=== PATIENT | female | born 1990 | race Caucasian/White ===

== ENCOUNTER → 2017-11-12 10:21 | Outpatient (CLI) | payer OTHER, SELFPAY | PROVIDERS: PCP Physician Assistant; Visit Provider Physician Assistant | DX: R05 Cough (principal); Z20.828 Contact with and (suspected) exposure to other viral communicable diseases | CPT/HCPCS: 87275; 87276 ==

== ENCOUNTER → 2018-03-05 12:31 | Outpatient (CLI) | payer OTHER, SELFPAY ==
--- NOTE | 2018-03-05 12:40 | US_ITS ---
US transvaginal HISTORY: ITS.REASON: OVARIAN ORDERING PHYSICIAN: Nahomy Lozada PATIENT AGE: 28 years Comparison: 03/03/2018 FINDINGS: The uterus is 8 by 4 x 4 centimeters with a combined endometrial thickness of 3 mm. No uterine mass evident. Nabothian cysts are noted. The left ovary is unremarkable at 2.4 x 1.8 cm. The right ovary is enlarged at 5 x 4 cm containing a 2.9 x 2.8 cm cyst. Blood flow is present. There is a small amount fluid in the cul-de-sac. IMPRESSION: 1. 3 cm right ovarian cyst. 2. Otherwise negative pelvic ultrasound
== END ==
PROVIDERS: Family Provider Physician Assistant; PCP Physician Assistant; Visit Provider Physician Assistant
DX: N83.201 Unspecified ovarian cyst, right side (principal)
CPT/HCPCS: 76830

== ENCOUNTER → 2018-03-12 08:22 | Outpatient (CLI) | payer OTHER, SELFPAY ==
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
== END ==
PROVIDERS: Family Provider Physician Assistant; PCP Physician Assistant; Visit Provider Physician Assistant
DX: R10.9 Unspecified abdominal pain (principal); R12 Heartburn; R93.5 Abnormal findings on diagnostic imaging of other abdominal regions, including retroperitoneum
CPT/HCPCS: 76700

== ENCOUNTER → 2018-10-27 11:48 | Outpatient (CLI) | payer OTHER, SELFPAY ==
[2018-10-27 13:32] LABS: HCG Qualitative, Serum Negative (Negative)
== END ==
PROVIDERS: PCP Physician Assistant; Visit Provider Obstetrics & Gynecology
DX: Z30.9 Encounter for contraceptive management, unspecified (principal)
CPT/HCPCS: 36415; 84703

== ENCOUNTER → 2020-06-01 10:18 | Outpatient (CLI) | payer OTHER, SELFPAY ==
--- NOTE | 2020-06-01 10:24 | XR_ITS ---
PROCEDURE: XR FOOT RT MIN 3V CLINICAL INDICATION: RT FOOT INJURY Lateral foot pain following injury COMPARISON: No exams were available for comparison FINDINGS: No fracture or dislocation. No lytic or blastic change. There is normal mineralization. The joint spaces are well-preserved. No significant degenerative/arthritic changes. No erosive changes evident. Other findings:None. IMPRESSION: No acute findings. Dictated by: Ugo Figueroa MD 06/01/2020 12:28 Ugo Figueroa MD in [place] 06/01/2020 12:28
== END ==
PROVIDERS: PCP Nurse Practitioner Family; Visit Provider Nurse Practitioner Family
DX: S99.921A Unspecified injury of right foot, initial encounter (principal)
CPT/HCPCS: 73630

== ENCOUNTER → 2020-07-20 13:04 | Outpatient (CLI) | payer OTHER, SELFPAY ==
[2020-07-20 15:15] LABS: HCG,Quantitative < 2 mIU/ml (0-5.42)
== END ==
PROVIDERS: Visit Provider Obstetrics & Gynecology
DX: Z32.00 Encounter for pregnancy test, result unknown (principal)
CPT/HCPCS: 36415; 84702

== ENCOUNTER 2020-10-16 09:43 | Emergency (ER) | payer OTHER, SELFPAY ==
[2020-10-16 09:44] VITALS: BP 143/99; PULSE 99; RESP 20; TEMP 36.9; O2SAT 100; BMI 31.6
[2020-10-16 10:24] VITALS: BP 139/90; PULSE 103; O2SAT 100
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
[2020-10-16 10:47] VITALS: BP 127/79; PULSE 98; O2SAT 89
[2020-10-16 11:06] VITALS: BP 134/90; PULSE 100; RESP 16; TEMP 36.6; O2SAT 100
== END 2020-10-16 11:07 | disposition home or self-care (01) ==
PROVIDERS: Emergency Provider Emergency Medicine; PCP Nurse Practitioner Family
DX: T23.211A Burn of second degree of right thumb (nail), initial encounter (principal); X10.1XXA Contact with hot food, initial encounter; Y92.69 Other specified industrial and construction area as the place of occurrence of the external cause; Y99.0 Civilian activity done for income or pay; R03.0 Elevated blood-pressure reading, without diagnosis of hypertension
CPT/HCPCS: 99282

== ENCOUNTER → 2020-10-27 08:24 | Outpatient (CLI) | payer OTHER, SELFPAY ==
--- NOTE | 2020-10-27 08:29 | US_ITS ---
PROCEDURE: US ABDOMEN LIMITED CLINICAL INDICATION: LUQ PAIN,RUQ PAIN COMPARISON: US [facility] US abdomen complete from 03/12/2018 FINDINGS: PANCREAS: Unremarkable. No obvious mass or abnormal fluid collection. No ductal dilatation LIVER: No focal liver lesions demonstrated. Homogeneous echogenicity. No intrahepatic biliary ductal dilatation evident. There is appropriate direction of blood flow within a non dilated portal vein RIGHT KIDNEY: Unremarkable. Normal size and echogenicity. No hydronephrosis GALLBLADDER: There are gallstones present. No gallbladder wall thickening, pericholecystic fluid, or biliary dilatation. Common bile duct is normal at 4 mm. IMPRESSION: Cholelithiasis otherwise negative limited abdominal ultrasound Dictated by: Ugo Figueroa MD 10/27/2020 14:47 Ugo Figueroa MD in [place] 10/27/2020 14:47
== END ==
PROVIDERS: PCP Nurse Practitioner Family; Visit Provider Nurse Practitioner Family
DX: R10.12 Left upper quadrant pain (principal); R10.11 Right upper quadrant pain
CPT/HCPCS: 76705

== ENCOUNTER → 2020-10-27 09:02 | Outpatient (CLI) | payer OTHER, SELFPAY ==
[2020-10-27 09:37] LABS: Basophils % 0.3 % (0.1-2.0); Eosinophils # 0.2 K/mm3 (0.0-0.4); Eosinophils % 2.1 % (0.1-12.0); Hemoglobin 15.5 g/dL (12.2-16.2); Lymphocytes # 2.5 K/mm3 (0.7-4.5); Lymphocytes % 25.7 % (10-50); Mean Corpuscular HGB Conc 33.6 g/dL (31.8-35.4); Mean Corpuscular Hemoglobin 28.6 pg (27.0-31.2); Monocytes # 0.3 K/mm3 (0.1-1.0); Monocytes % 3.5 % (1.7-9.3); Neutrophils # 6.6 K/mm3 (1.8-7.8); Neutrophils % 68.3 % (37.0-80.0); Platelet Count 253 K/mm3 (142-424); Red Blood Count 5.41 M/mm3 (4.20-5.40); Red Cell Distribution Width 13.6 % (11.5-17.5); White Blood Count 9.7 K/mm3 (4.8-10.8)
[2020-10-27 10:06] LABS: Alanine Aminotransferase 21 U/L (12-78); Albumin Level 4.2 g/dl (3.5-5.0); Albumin/Globulin Ratio 1.3 (1.1-1.8); Alkaline Phosphatase 99 U/L (38-126); Anion Gap 11.3 mEq/L (5-15); Aspartate Amino Transferase 27 U/L (14-36); Bilirubin,Total 0.6 mg/dl (0.2-1.3); Blood Urea Nitrogen 9 mg/dl (7-17); Calcium 9.3 mg/dl (8.4-10.2); Carbon Dioxide 27 mmol/L (22.0-30.0); Chloride 103 mmol/L (98-107); Estimated Glomerular Filt Rate 97 ml/min (>60); GFR (African American) 117 ML/MIN (>60); Globulin 3.2 g/dL (1.3-3.2); Glucose 114 mg/dl (74-100); Lipase 131 U/L (23-300); Potassium 4.3 mmoL/L (3.5-5.1); Sodium 137 mmol/L (136-145); Total Protein,Serum 7.4 g/dl (6.3-8.2)
[2020-10-27 10:24] LABS: T4 (Thyroxine) 14.8 ug/dl (5.53-11.0); Triiodothryronine (T3) Uptake 27 % (23.5-40.5)
[2020-10-27 10:38] LABS: Thyroid Stimulating Hormone 0.08 uIU/mL (0.465-4.68)
== END ==
PROVIDERS: Visit Provider Nurse Practitioner Family
DX: R10.12 Left upper quadrant pain (principal); R10.11 Right upper quadrant pain; E03.9 Hypothyroidism, unspecified
CPT/HCPCS: 36415; 80053; 83690; 84436; 84443; 84479; 85025

== ENCOUNTER 2020-11-18 19:09 | Emergency (ER) | payer OTHER, SELFPAY ==
[2020-11-18 19:25] VITALS: BP 157/95; PULSE 106; RESP 20; TEMP 36.5; O2SAT 98; BMI 32.1
--- NOTE | 2020-11-18 19:34 | HMH.EDUTC ---
[facility] [place] Disposition Clinical Impression: Dyspnea Qualifiers: Dyspnea type: shortness of breath Qualified Code(s): R06.02 - Shortness of breath Disposition: Home, Self-Care Condition on Discharge: Good Instructions: Preventing the Spread of Coronavirus Discharge Instructions Additional Instructions: COVID-19 test should be available tomorrow Referrals: Lenka Barnett APRN [Primary Care Provider] - Time of Disposition: 20:15 Medical Decision Making - Royce Inquiry Pt receiving controlled substance: No Vital Signs: 11/18/20 19:25 Temperature 97.7 F Temperature Source Temporal Artery Scan Pulse Rate [Right Brachial] 106 H Respiratory Rate 20 Blood Pressure [Right Arm] 157/95 H Blood Pressure Mean [Right Arm] 115 Blood Pressure Source [Right Arm] Automatic Cuff Blood Pressure Position [Right Arm] Sitting 02 Sat by Pulse Oximetry 98 Oxygen Delivery Method Room Air - Lab Data Lab results reviewed: Yes: I reviewed the patient's lab results. Orders (Tests/Meds): ORDERS Category Date Time Status Covid-19 Nasal PCR ([facility]) Routine Lab 11/18/20 19:20 Received [facility] [place] HPI - General Stated complaint: covid test with symptoms Time Seen by Provider: 11/18/20 19:34 - History of Present Illness Provider Complaint: Patient had 2nd COVID vaccine on 11/15. She woke up the next morning with fever, chills, body aches and cough. [place] a little better / but was sent home from work because was fatigued. Worked today but when she got home she had nausea, no appetite, cough and couldn't catch her breath. She works at a alf. A coworker tested positive for COVID19 recently as well. Onset (ago): day(s) (3) Associated symptoms: cough, fever/chills, malaise, nausea/vomiting Treatments prior to arrival: NSAID - Related Data Home Medications Medication Instructions Recorded Confirmed Buspirone HCl [Buspirone 15 mg 15 mg PO BID 03/03/18 11/08/20 Tablets] Sertraline HCl [Zoloft] 50 mg PO DAILY 03/03/18 11/08/20 Omeprazole [Omeprazole 40mg 40 mg PO DAILY 06/04/19 11/08/20 Capsule] cetirizine 10 mg tablet 10 mg PO DAILY PRN tab 06/22/20 11/08/20 norethindrone-e.estradioL-iron 1 tab PO DAILY 10/16/20 11/08/20 [[id number] 1-0.02(24)-19] levothyroxine 200 mcg tablet 175 mcg PO DAILY tab 11/08/20 11/08/20 Allergies Allergy/AdvReac Type Severity Reaction Status Date / Time No Known Allergies Allergy Verified 11/08/20 13:30 [facility] History - Hepatitis A Screen Attestation statement:: This patient has been screened for Hepatitis A risk factors. I have reviewed the patient's past medical history: Yes Medical History: Denies:: Diabetes Mellitus Type 1, Diabetes Mellitus Type 2, Lung Disease, Seizures Other Medical History: Reports: Thyroid Disease Comment: Depression. Hypothyroidism. Goiter. Gallstones. Ovarian Cysts. Gastroesophageal reflux disease Laterality Cases: Bilateral: Other Other Surgeries: Yes: , EGD, Thyroidectomy Amputation: No Fractures: No Comment: thyroidX (partial)--2005. Right wrist ganglionX--2006. Primary --2011. D&C, [facility] Bx Cx--11/09/2012. Complete thyroid removal--2013 - Social History Smoking Status: Never smoker Tobacco Type: cigarettes Alcohol Intake: never Alcohol Intake Frequency:: other Substance Use Type: denies use Occupational Status: unemployed Family Hx:: No significant family history Comment: 2007, , female, weight 5lb 11oz, bottle, No complications. 2011 , Primary C/S, weight: 8lb 1 oz 21 1/2 inch , Female ROS Obtained: Yes All systems reviewed & no additional complaints - Constitutional Constitutional: Reports body ache, Reports chills, Reports fever(s), Reports headache(s), Reports lethargy, Reports malaise - Respiratory Respiratory: Reports cough - Gastrointestinal Gastrointestingal: Reports: nausea Physical Exam - General General appearance: alert, in no apparent distress - Head
[2020-11-18 20:13] VITALS: BP 157/95; PULSE 106; RESP 20; TEMP 36.5; O2SAT 98
[2020-11-18 20:30] LABS: UTC Strep Screen (Rapid) Negative (Negative)
[2020-11-18 20:31] LABS: UTC Influenza A Antigen Negative (Negative); UTC Influenza B Antigen Negative (Negative)
== END 2020-11-18 20:15 | disposition home or self-care (01) ==
PROVIDERS: Emergency Provider Physician Assistant; PCP Nurse Practitioner Family
DX: Z20.822 Contact with and (suspected) exposure to COVID-19 (principal); R06.02 Shortness of breath; R50.9 Fever, unspecified; E03.9 Hypothyroidism, unspecified
CPT/HCPCS: 87804; 87880; 99202; G0463; U0003

== ENCOUNTER → 2020-12-06 14:06 | Outpatient (CLI) | payer OTHER, SELFPAY ==
[2020-12-06 15:51] LABS: Urine Pregnancy, HCG Qual. Negative (Negative)
[2020-12-06 18:09] LABS: Coronavirus 19 IgG Antibody Positive (Negative); Coronavirus 19 IgM Antibody Negative (Negative)
== END ==
PROVIDERS: Visit Provider Surgery
DX: Z01.818 Encounter for other preprocedural examination (principal); Z20.822 Contact with and (suspected) exposure to COVID-19; Z86.16 Personal history of COVID-19; K80.20 Calculus of gallbladder without cholecystitis without obstruction
CPT/HCPCS: 36415; 81025; 86328

== ENCOUNTER 2020-12-08 06:06 | Day surgery (SDC) | payer OTHER, SELFPAY ==
[2020-12-05 10:33] VITALS: BMI 32.1
[2020-12-08] VITALS (13 sets, daily range): BP systolic 125–153; BP diastolic 72–89; PULSE 80–97; RESP 15–18; TEMP 36.3–43; O2SAT 96–100
[2020-12-08 06:47] LABS: HCG Qualitative, Serum Negative (Negative)
--- NOTE | 2020-12-08 08:06 | HMH.OPNOTE ---
Date of procedure: 12/08/20 Pre-op Diagnosis:: Symptomatic cholelithiasis Post-op Diagnosis:: Chronic calculus cholecystitis Procedure performed:: Laparoscopic cholecystectomy Surgeon:: Collins Chambers MD PLANT TECHNICIAN:: Mariano Hinton Anesthesia: GETA Estimated blood loss (mL): 10 Operative findings:: Significant infundibular thickening Operative note:: After informed consent was obtained, the patient was taken to the operating room and placed in the supine position. General anesthesia was induced and the abdomen was prepped and draped in a sterile fashion. After infiltration with local anesthetic an infraumbilical incision was made. A Veress needle was placed in position. The abdomen was insufflated. A 5 mm optical trocar was placed in position. Under direct visualization, a 12 mm trocar was placed in the subxiphoid position and 2 additional 5 mm trocars were placed in the right upper quadrant. The gallbladder was elevated up and over the liver margin. The tissue around the cystic duct was carefully dissected. 3 clips were placed proximally and the duct was transected with harmonic whitney. Harmonic whitney were then utilized to dissect the gallbladder away from the liver margin with careful attention to the control of the cystic artery. The gallbladder was placed in a retrieval bag and removed through the subxiphoid trocar site. The right upper quadrant was thoroughly irrigated. No active bleeding or bile leak was noted. Fascia at the subxiphoid trocar site was reapproximated utilizing the NeoClose device. The remaining trocars were removed. All wounds were irrigated and skin was closed with 4-0 Monocryl in a subcuticular fashion. Steri-Strips were applied. The patient's anesthetic agents were reversed and extubation was completed prior to transfer to recovery in stable condition. Condition: stable Disposition: PACU Specimens:: Gallbladder and contents Complications:: No immediate
--- NOTE | 2020-12-08 08:18 | P.PN_ITS ---
[facility] Anesthesia Checklist - Patient Identification Patient Identification: Arm Band - Structural Data Admitted From: Home Planned Operative Procedure/s: lap jose luis Consent for Planned Operative Procedure(s) Verified: Yes Verified Documents: Surgical Consent, History and Physical - NPO Status Verified Time NPO: 00:00 - Additional verifications Anesthesia Reactions: No Hx Blood Transfusions: No Blood Transfusion Reaction: No - Airway Assessment C-Spine Mobility Assessed: Yes (mp2) TMJ Mobility Assessed: Yes Dentition: Good Dentition - Neurological Assessment Level of Consciousness: Awake, Alert - Anesthesia Plan Anesthesia Risk discussed: Yes Anesthesia Plan: Verified ASA Class: II Anesthesia Type: General [facility] History I have reviewed the patient's past medical history: Yes Medical History: Reports:: Anxiety, Gastroesophageal Reflux Disease(GERD) Denies:: Cancer, Diabetes Mellitus Type 1, Diabetes Mellitus Type 2, Lung Disease, MRSA, Seizures *Have you ever received a pneumonia vaccine?: No *Have you received a flu vaccine this season?: No Other Medical History: Reports: Thyroid Disease. Denies: Blood Transfusion Reaction Anesthesia experience/problems:: nac Laterality Cases: Bilateral: Other Other Surgeries: Yes: , EGD, Thyroidectomy Amputation: No Fractures: No - *Social History Last grade of school completed: Some college Smoking Status: Never smoker Tobacco Type: cigarettes Alcohol Intake: never Alcohol Intake Frequency:: other Substance Use Type: denies use *Occupational Status:: unemployed *Travel in the last 8 weeks: None Family Hx:: No significant family history
--- NOTE | 2020-12-08 08:19 | HMH.ANESI ---
[facility] Anesthesia Record Part I Intake, IV Amount: 1,000 Estimated blood loss (mL): 10 Urine output (mL): 0 Blood Pressure: 125/76 SaO2: 96 Pulse Rate: 97 Respiratory Rate: 16 Temperature: 98.7 F Patient is:: Drowsy, Stable Stable to PACU at:: 08:15
--- NOTE | 2020-12-08 10:22 | HMH.ANESII ---
[facility] Anesthesia Record Part II Discharge Time: 08:59 Destination: Surgical Day Care (OP Surgery) PACU nurse assessment reviewed?: Yes Patient Condition:: Good Anesthesia Complications:: None Swallowing reflex intact?: Yes Cyanosis?: No Blood Pressure: 131/81 Pulse Rate: 82 Temperature: 97.6 F Mental Status: Alert & Oriented Pain level:: 1 Nausea and/or vomitting:: None Intake, IV Amount: 0
== END 2020-12-08 09:40 | disposition home or self-care (01) ==
PROVIDERS: PCP Nurse Practitioner Family; Visit Provider Surgery
PROC: 0FT44ZZ Resection of Gallbladder, Percutaneous Endoscopic Approach (ICD-10-PCS; CPT 47562; principal; 2020-12-08 07:30)
DX: K80.10 Calculus of gallbladder with chronic cholecystitis without obstruction; F41.9 Anxiety disorder, unspecified; K21.9 Gastro-esophageal reflux disease without esophagitis; E07.9 Disorder of thyroid, unspecified; F32.9 Major depressive disorder, single episode, unspecified; Z79.899 Other long term (current) drug therapy
CPT/HCPCS: 47562; 84703; 96374; J2405; J2710

== ENCOUNTER 2020-12-20 10:08 | Outpatient (CLI) | payer OTHER, SELFPAY ==
--- NOTE | 2020-12-20 10:26 | PC.NURSE ---
1026-phlebotomy here to collect labs
[2020-12-20 10:46] LABS: Basophils % 0.3 % (0.1-2.0); Eosinophils # 0.3 K/mm3 (0.0-0.4); Eosinophils % 2.9 % (0.1-12.0); Hematocrit 42.8 % (37.0-47.0); Hemoglobin 13.5 g/dL (12.2-16.2); Lymphocytes # 3.2 K/mm3 (0.7-4.5); Lymphocytes % 28.4 % (10-50); Mean Corpuscular HGB Conc 31.6 g/dL (31.8-35.4); Mean Corpuscular Hemoglobin 27.9 pg (27.0-31.2); Mean Corpuscular Volume 88.3 fl (81-99); Mean Platelet Volume 7.6 fl (7.4-10.4); Monocytes # 0.4 K/mm3 (0.1-1.0); Monocytes % 3.2 % (1.7-9.3); Neutrophils # 7.3 K/mm3 (1.8-7.8); Neutrophils % 65.2 % (37.0-80.0); Platelet Count 242 K/mm3 (142-424); Red Blood Count 4.85 M/mm3 (4.20-5.40); Red Cell Distribution Width 13.8 % (11.5-17.5); White Blood Count 11.2 K/mm3 (4.8-10.8)
[2020-12-20 10:50] VITALS: BP 148/86; PULSE 87; RESP 18; TEMP 36.4; O2SAT 99
[2020-12-20 10:53] LABS: Alanine Aminotransferase 19 U/L (12-78); Albumin Level 3.9 g/dl (3.5-5.0); Albumin/Globulin Ratio 1.2 (1.1-1.8); Alkaline Phosphatase 96 U/L (38-126); Anion Gap 11.3 mEq/L (5-15); Aspartate Amino Transferase 35 U/L (14-36); Bilirubin,Total 0.2 mg/dl (0.2-1.3); Blood Urea Nitrogen 11 mg/dl (7-17); Calcium 8.9 mg/dl (8.4-10.2); Carbon Dioxide 26 mmol/L (22.0-30.0); Chloride 106 mmol/L (98-107); Estimated Glomerular Filt Rate 97 ml/min (>60); GFR (African American) 117 ML/MIN (>60); Globulin 3.3 g/dL (1.3-3.2); Glucose 114 mg/dl (74-100); Potassium 4.3 mmoL/L (3.5-5.1); Sodium 139 mmol/L (136-145); Total Protein,Serum 7.2 g/dl (6.3-8.2)
== END 2020-12-20 10:50 | disposition home or self-care (01) ==
LOC: INF 10:08
PROVIDERS: PCP Nurse Practitioner Family; Visit Provider Surgery
DX: K80.20 Calculus of gallbladder without cholecystitis without obstruction (principal)
CPT/HCPCS: 80053; 85025; 96372

== ENCOUNTER 2021-02-21 21:46 | Emergency (ER) | payer OTHER, SELFPAY ==
[2021-02-21 21:47] VITALS: BP 131/89; PULSE 94; RESP 18; TEMP 37.3; O2SAT 97; BMI 34.9
--- NOTE | 2021-02-21 22:07 | CT_ITS ---
PROCEDURE INFORMATION: Exam: CT Abdomen And Pelvis Without Contrast Exam date and time: 02/21/2021 10:07 PM Age: 31 years old Clinical indication: Abdominal pain; Left; Prior surgery; Surgery date: 6+ months; Surgery type: Gb and c section; Patient HX: Lt flank pain and difficulty urinating since 2 pm today TECHNIQUE: Imaging protocol: Computed tomography of the abdomen and pelvis without contrast. Radiation optimization: All CT scans at this facility use at least one of these dose optimization techniques: automated exposure control; mA and/or kV adjustment per patient size (includes targeted exams where dose is matched to clinical indication); or iterative reconstruction. COMPARISON: ABDPELW CT abdomen pelvis w con 03/03/2018 1:27 PM FINDINGS: Lungs: The visualized lung bases are clear. Pleural spaces: There are no pleural effusions present. Heart: The visualized portions of the heart are unremarkable. There is no evidence of pericardial fluid collections. Liver: There is mild enlargement of the liver measuring 20.7 cm in CC dimension. Evaluation of the liver is limited without intravenous contrast but the liver is otherwise within normal limits for this noncontrast study. Gallbladder and bile ducts: There has been a cholecystectomy. Pancreas: Noncontrast images of the pancreas are within range of normal. Spleen: The spleen is normal. Adrenal glands: The adrenal glands are normal. Kidneys and ureters: There is a tiny right renal collecting system calcification. No hydronephrosis. The left kidney appears within range of normal. Stomach and bowel: Lack of gastrointestinal contrast limits evaluation of bowel. The colon is normal. Lack of gastrointestinal contrast limits evaluation of bowel. Unopacified loops of small bowel within range of normal.There is a moderate degree of residual ingested material within the stomach. The stomach is otherwise normal. The duodenum appears normal. Appendix: No evidence of appendicitis. Intraperitoneal space: No evidence of intraperitoneal free air. There is no evidence of free intraperitoneal or pelvic fluid. Vasculature: There are numerous benign phleboliths in the pelvis. A few pelvic phleboliths are inseparable from the distal ureters but no secondary changes to favor ureteral stone. Lymph nodes: No enlarged lymph nodes. Urinary bladder: There is a small calcification adjacent to the inferior rightward bladder which either reflects small layering calcification or focus of mural calcification. There is mild bladder wall thickening. The bladder is otherwise normal. Reproductive: The uterus is normal. No adnexal cysts or masses are identified. Bones/joints: The thoracolumbar spine demonstrates mild degenerative changes at multiple levels. There is no evidence of acute fracture. There is no evidence of acute fracture. Soft tissues: There is a tiny fat-containing umbilical hernia. There is a small fat containing midline ventral hernia just superior to the umbilicus with fascial defect measuring approximately 4 mm. The hernia measures approximately 13 mm. There is another small ventral hernia in the upper abdomen seen on series 602, image 54 measuring approximately 6 mm. No soft tissue swelling is identified. Other findings: Evaluation is limited by the lack of intravenous contrast. IMPRESSION: 1. Small calcification adjacent to the inferior rightward bladder which either reflects small layering calcification or focus of mural calcification. 2. Tiny nonobstructing right renal nephrolith. 3. Mild hepatomegaly. 4. Mild bladder wall thickening suggesting incomplete distention, chronic outflow obstructi
--- NOTE | 2021-02-21 22:20 | HMH.EDUROGF ---
ED Disposition Clinical Impression: SIRS (systemic inflammatory response syndrome), Bladder dysfunction Urinary tract infection Qualifiers: Urinary tract infection type: site unspecified Hematuria presence: without hematuria Qualified Code(s): N39.0 - Urinary tract infection, site not specified Disposition: Home, Self-Care Condition on Discharge: Good Instructions: DI for Urinary Tract Infection (UTI) Additional Instructions: use meds and see pcp and urology - call pcp for urine culture results Prescriptions: levoFLOXacin [Levaquin 500mg tab] 500 mg PO DAILY #7 tab Transmission Status: Pending to [facility] Referrals: Lenka Barnett APRN [Primary Care Provider] - Jensen Hoyt MD [Staff Physician] - - Critical Care Critical Care Time: No Attestation: On 02/21/21, the high probability of a clinically significant, sudden or life threatening deterioration of the following system(s) required my full and direct attention, intervention and personal management. The time I documented below is in addition to time spent performing reported procedures but includes the following listed in this critical care notation. Medical Decision Making - Medical Records Medical records reviewed: Yes: I reviewed the patient's medical records. - Royce Inquiry Pt receiving controlled substance: No Vital Signs: 02/21/21 21:47 02/21/21 22:46 02/22/21 00:00 Temperature 99.2 F Temperature Source Oral Pulse Rate 87 Pulse Rate [Right Radial] 94 H Respiratory Rate 18 Blood Pressure 131/86 130/77 Blood Pressure [Right Arm] 131/89 Blood Pressure Mean [Right Arm] 103 Blood Pressure Source Automatic Cuff Automatic Cuff Blood Pressure Source [Right Arm] Automatic Cuff Blood Pressure Position Sitting Supine Blood Pressure Position [Right Arm] Sitting 02 Sat by Pulse Oximetry 97 99 Oxygen Delivery Method Room Air Room Air 02/22/21 00:59 02/22/21 01:00 02/22/21 01:09 Temperature Temperature Source Pulse Rate 85 85 Pulse Rate [Right Radial] Respiratory Rate Blood Pressure 109/64 L 141/79 H Blood Pressure [Right Arm] Blood Pressure Mean [Right Arm] Blood Pressure Source Automatic Cuff Automatic Cuff Blood Pressure Source [Right Arm] Blood Pressure Position Supine Supine Blood Pressure Position [Right Arm] 02 Sat by Pulse Oximetry 99 98 Oxygen Delivery Method Room Air Room Air Room Air - Lab Data Lab results reviewed: Yes: I reviewed the patient's lab results. Lab Results 02/21/21 22:14: WBC 14.0 H, RBC 5.02, Hgb 14.2, Hct 43.4, MCV 86.6, MCH 28.2, MCHC 32.6, RDW 13.9, Plt Count 304, MPV 7.6, Neut % (Auto) 69.3, Lymph % (Auto) 25.0, [place] % (Auto) 4.0, Eos % (Auto) 1.4, Baso % (Auto) 0.3, Neut # (Auto) 9.7 H, Lymph # (Auto) 3.5, [place] # (Auto) 0.6, Eos # (Auto) 0.2, Baso # (Auto) 0.0 02/21/21 22:14: Sodium 138, Potassium 3.9, Chloride 103, Carbon Dioxide 27, Anion Gap 11.9, BUN 9, Creatinine 0.90, Estimated Creat Clear 125, Estimated GFR 72, Est GFR ( Amer) 87, Glucose 108 H, Calcium 9.4, Total Bilirubin 0.3, AST 24, ALT 20, Alkaline Phosphatase 92, C-Reactive Protein 28.3 H, Total Protein 8.0, Albumin 4.7, Globulin 3.3 H, Albumin/Globulin Ratio 1.4 02/21/21 22:14: ESR 2 02/21/21 22:14: Serum HCG, Qual Negative 02/22/21 00:05: Urine Color Vance, Urine Appearance Clear, Urine pH 7.0, Ur Specific [place] 1.025, Urine Protein 3+, Urine Glucose (UA) Trace, Urine Ketones Trace, Urine Blood 1+, Urine Nitrate Positive, Urine Bilirubin Negative, Urine Urobilinogen >=8.0, Ur Leukocyte Esterase Trace, Urine WBC Occasional, Amorphous Sediment Trace, Urine Bacteria Trace Result diagrams: 02/21/21 22:14 02/21/21 22:14 Orders (Tests/Meds): ED MEDICATIONS Generic Name Dose Route Start Last Admin Trade Name Freq PRN Reason Stop Dose Admin Sodium Chloride 1,000 mls @ 999 mls/hr 02/21/21 22:15 02/21/21 22:41 Sod Chlor 0.9% 1000ml Bag IV 02/21/21 23:15 999 mls/
[2021-02-21 22:27] LABS: Basophils % 0.3 % (0.1-2.0); Eosinophils # 0.2 K/mm3 (0.0-0.4); Eosinophils % 1.4 % (0.1-12.0); Hematocrit 43.4 % (37.0-47.0); Hemoglobin 14.2 g/dL (12.2-16.2); Lymphocytes # 3.5 K/mm3 (0.7-4.5); Mean Corpuscular HGB Conc 32.6 g/dL (31.8-35.4); Mean Corpuscular Hemoglobin 28.2 pg (27.0-31.2); Mean Corpuscular Volume 86.6 fl (81-99); Mean Platelet Volume 7.6 fl (7.4-10.4); Monocytes # 0.6 K/mm3 (0.1-1.0); Neutrophils # 9.7 K/mm3 (1.8-7.8); Neutrophils % 69.3 % (37.0-80.0); Platelet Count 304 K/mm3 (142-424); Red Blood Count 5.02 M/mm3 (4.20-5.40); Red Cell Distribution Width 13.9 % (11.5-17.5)
[2021-02-21 22:32] LABS: Chloride 103 mmol/L (98-107)
[2021-02-21 22:33] LABS: Potassium 3.9 mmoL/L (3.5-5.1); Sodium 138 mmol/L (136-145)
[2021-02-21 22:35] LABS: Alanine Aminotransferase 20 U/L (12-78); Alkaline Phosphatase 92 U/L (38-126); Aspartate Amino Transferase 24 U/L (14-36); Bilirubin,Total 0.3 mg/dl (0.2-1.3); Blood Urea Nitrogen 9 mg/dl (7-17); Creatinine Clearance Estimated 125 mL/min (50-200); Estimated Glomerular Filt Rate 72 ml/min (>60); GFR (African American) 87 ML/MIN (>60)
[2021-02-21 22:36] LABS: Albumin Level 4.7 g/dl (3.5-5.0); Albumin/Globulin Ratio 1.4 (1.1-1.8); Anion Gap 11.9 mEq/L (5-15); Calcium 9.4 mg/dl (8.4-10.2); Carbon Dioxide 27 mmol/L (22.0-30.0); Globulin 3.3 g/dL (1.3-3.2); Glucose 108 mg/dl (74-100)
[2021-02-21 22:39] LABS: HCG Qualitative, Serum Negative (Negative)
[2021-02-21 22:41] LABS: C-Reactive Protein 28.3 mg/L (0-4)
[2021-02-21 22:46] VITALS: BP 131/86
[2021-02-21 22:52] LABS: Erythrocyte Sedimentation Rate 2 mm/hr (0-20)
[2021-02-22] VITALS: BP 130/77; PULSE 87; O2SAT 99
[2021-02-22 00:15] LABS: Microscopic, Urine URINE MICROSCOPIC (MICROSCOPIC)
[2021-02-22 00:42] LABS: Appearance,Urine CLEAR (Clear); Bilirubin,Urine Negative (Negative); Blood, Urine 1+ (Negative); Color,Urine ORANGE (Yellow); Glucose,Urine (UA) TRACE (Negative); Ketones,Urine TRACE (Negative); Leukocyte Esterase,Urine TRACE (Negative); Nitrate,Urine POSITIVE (Negative); Protein,Urine 3+ (Negative); Specific Gravity, Urine 1.025 (1.005-1.030); Urobilinogen,Urine >=8.0 EU/dl (0.2)
[2021-02-22 01:00] VITALS: BP 109/64; PULSE 85; O2SAT 99
[2021-02-22 01:03] LABS: WBC,Urine Occasional #/hpf (0-3)
[2021-02-22 01:04] LABS: Amorphous Sediment,Urine Trace /lpf; Bacteria,Urine Trace /lpf
[2021-02-22 01:09] VITALS: BP 141/79; PULSE 85; O2SAT 98
[2021-02-22 01:30] VITALS: BP 115/83; PULSE 84; RESP 16; TEMP 37.2; O2SAT 97
== END 2021-02-22 01:37 | disposition home or self-care (01) ==
PROVIDERS: Emergency Provider Emergency Medicine; PCP Nurse Practitioner Family
DX: N30.01 Acute cystitis with hematuria (principal); R65.10 Systemic inflammatory response syndrome (SIRS) of non-infectious origin without acute organ dysfunction; K21.9 Gastro-esophageal reflux disease without esophagitis; E03.9 Hypothyroidism, unspecified; Z79.899 Other long term (current) drug therapy
CPT/HCPCS: 74176; 80053; 81001; 84703; 85025; 85651; 86140; 87086; 87088; 87186; 96365; 96367; 96375; 99283

== ENCOUNTER → 2021-06-07 18:03 | Outpatient (CLI) | payer OTHER, SELFPAY | PROVIDERS: Visit Provider Urology | DX: N39.0 Urinary tract infection, site not specified (principal) | CPT/HCPCS: 87086; 87088; 87186 ==

== ENCOUNTER → 2021-11-21 08:00 | Outpatient (CLI) | payer OTHER, SELFPAY ==
[2021-11-21 08:30] LABS: Hematocrit 43.7 % (37.0-47.0); Hemoglobin 14.4 g/dL (12.2-16.2); Mean Corpuscular Hemoglobin 29.9 pg (27.0-31.2); Mean Corpuscular Volume 90.4 fl (81-99); Platelet Count 311 K/mm3 (142-424); Red Blood Count 4.84 M/mm3 (4.20-5.40); White Blood Count 10.1 K/mm3 (4.8-10.8)
[2021-11-21 10:02] LABS: Chloride 101 mmol/L (98-107)
[2021-11-21 10:03] LABS: Potassium 4.1 mmoL/L (3.5-5.1); Sodium 136 mmol/L (136-145)
[2021-11-21 10:05] LABS: Alanine Aminotransferase 31 U/L (12-78); Alkaline Phosphatase 75 U/L (38-126); Anion Gap 12.1 mEq/L (5-15); Aspartate Amino Transferase 26 U/L (14-36); Bilirubin,Total 0.6 mg/dl (0.2-1.3); Blood Urea Nitrogen 13 mg/dl (7-17); Carbon Dioxide 27 mmol/L (22.0-30.0); Estimated Glomerular Filt Rate 83 ml/min (>60); GFR (African American) 100 ML/MIN (>60)
[2021-11-21 10:06] LABS: Albumin Level 4.2 g/dl (3.5-5.0); Albumin/Globulin Ratio 1.4 (1.1-1.8); Calcium 9.1 mg/dl (8.4-10.2); Globulin 2.9 g/dL (1.3-3.2); Glucose 102 mg/dl (74-100); Lipase 101 U/L (23-300); Total Protein,Serum 7.1 g/dl (6.3-8.2)
== END ==
PROVIDERS: PCP Nurse Practitioner Family
DX: K44.9 Diaphragmatic hernia without obstruction or gangrene (principal)
CPT/HCPCS: 36415; 80053; 83690; 85014; 85018; 85048; 85049

== ENCOUNTER → 2022-01-18 11:53 | Outpatient (CLI) | payer OTHER, SELFPAY ==
--- NOTE | 2022-01-18 12:03 | XR_ITS ---
FINAL REPORT CLINICAL HISTORY: PAIN IN LFT THIGHPAIN IN LAFT THIGH, no injury, intermittent pain x 1 year FINDINGS: LEFT FEMUR 2 views were obtained. The proximal aspect of the femur is not within the field of view. There is no acute fracture or dislocation. The knee joint spaces are intact. There is no soft tissue abnormality. IMPRESSION: No acute bony abnormality in the visualized portion of the femur. Reviewed, Interpreted and Dictated by Med Bhakta III, MD Transcribed by Shannan Montemayor Authenticated by Med Bhakta III, MD on 01/18/2022 12:49:32 PM [facility]
--- NOTE | 2022-01-18 12:04 | XR_ITS ---
FINAL REPORT CLINICAL HISTORY: PAIN IN LAFT THIGH, no injury, intermittent pain x 1 year FINDINGS: LEFT HIP Two views of the left hip including an AP pelvis demonstrate no acute fracture or dislocation. The joint spaces appear normal. The visualized bony structures are well aligned. No soft tissue abnormality is seen. IMPRESSION: No acute bony abnormality. Reviewed, Interpreted and Dictated by Med Bhakta III, MD Transcribed by Shannan Montemayor Authenticated by Med Bhakta III, MD on 01/18/2022 12:46:39 PM [facility]
== END ==
PROVIDERS: PCP Nurse Practitioner Family; Visit Provider Internal Medicine Gastroenterology
DX: Z01.812 Encounter for preprocedural laboratory examination (principal); Z11.52 Encounter for screening for COVID-19
CPT/HCPCS: 73502; 73552; C9803; U0003; U0005

== ENCOUNTER 2022-01-20 23:36 | Emergency (ER) | payer OTHER, SELFPAY ==
[2022-01-20 23:53] VITALS: BP 125/77; PULSE 103; RESP 16; TEMP 36.8; O2SAT 95; BMI 28.5
[2022-01-21 00:47] LABS: Basophils # 0.1 K/mm3 (0-0.2); Basophils % 1.1 % (0.1-2.0); Eosinophils # 0.1 K/mm3 (0.0-0.4); Eosinophils % 0.4 % (0.1-12.0); Hemoglobin 14.7 g/dL (12.2-16.2); Lymphocytes # 2.2 K/mm3 (0.7-4.5); Lymphocytes % 18.4 % (10-50); Mean Corpuscular HGB Conc 32.6 g/dL (31.8-35.4); Mean Corpuscular Hemoglobin 29.2 pg (27.0-31.2); Mean Corpuscular Volume 89.7 fl (81-99); Mean Platelet Volume 8.1 fl (7.4-10.4); Monocytes # 0.4 K/mm3 (0.1-1.0); Monocytes % 3.2 % (1.7-9.3); Neutrophils # 9.2 K/mm3 (1.8-7.8); Neutrophils % 76.9 % (37.0-80.0); Platelet Count 282 K/mm3 (142-424); Red Blood Count 5.01 M/mm3 (4.20-5.40); Red Cell Distribution Width 13.5 % (11.5-17.5); White Blood Count 11.9 K/mm3 (4.8-10.8)
[2022-01-21 00:49] LABS: Lipase 78 U/L (23-300)
[2022-01-21 00:50] LABS: Anion Gap 11.9 mEq/L (5-15); Blood Urea Nitrogen 8 mg/dl (7-17); Carbon Dioxide 29 mmol/L (22.0-30.0); Chloride 103 mmol/L (98-107); Creatinine Clearance Estimated 174 mL/min (50-200); Estimated Glomerular Filt Rate 115 ml/min (>60); Potassium 3.9 mmoL/L (3.5-5.1); Sodium 140 mmol/L (136-145)
[2022-01-21 00:51] LABS: Alanine Aminotransferase 26 U/L (12-78); Albumin Level 4.2 g/dl (3.5-5.0); Albumin/Globulin Ratio 1.4 (1.1-1.8); Alkaline Phosphatase 78 U/L (38-126); Aspartate Amino Transferase 32 U/L (14-36); Bilirubin,Total 0.6 mg/dl (0.2-1.3); GFR (African American) 139 ML/MIN (>60); Globulin 3.1 g/dL (1.3-3.2); Glucose 131 mg/dl (74-100); Total Protein,Serum 7.3 g/dl (6.3-8.2)
[2022-01-21 00:53] LABS: Microscopic, Urine URINE MICROSCOPIC (MICROSCOPIC)
[2022-01-21 00:54] LABS: Appearance,Urine CLEAR (Clear); Blood, Urine Negative (Negative); Color,Urine YELLOW (Yellow); Glucose,Urine (UA) Negative (Negative); Ketones,Urine 1+ (Negative); Leukocyte Esterase,Urine Negative (Negative); Nitrate,Urine Negative (Negative); Protein,Urine TRACE (Negative); Urobilinogen,Urine 0.2 EU/dl (0.2)
[2022-01-21 01:00] LABS: Urine Pregnancy, HCG Qual. Negative (Negative)
[2022-01-21 01:01] LABS: Bilirubin,Urine Negative (Negative)
[2022-01-21 01:02] LABS: Amorphous Sediment,Urine 2+ /lpf; Mucus,Urine 1+ /lpf
[2022-01-21 01:03] LABS: Troponin I < 0.01 ng/ml (0.00-0.034)
[2022-01-21 01:16] VITALS: BP 121/80; PULSE 102; RESP 16; TEMP 36.8; O2SAT 98
--- NOTE | 2022-01-21 05:59 | HMH.EDGENADL ---
ED Disposition Clinical Impression: Left against medical advice, Gastritis Disposition: Left Against Medical Advice Condition on Discharge: Fair Instructions: DI for Acute Abdominal Pain Referrals: Lenka Barnett APRN [Primary Care Provider] - - Critical Care Critical Care Time: No Attestation: On 01/20/22, the high probability of a clinically significant, sudden or life threatening deterioration of the following system(s) required my full and direct attention, intervention and personal management. The time I documented below is in addition to time spent performing reported procedures but includes the following listed in this critical care notation. Medical Decision Making - Royce Inquiry Pt receiving controlled substance: No Vital Signs: 01/20/22 23:53 01/21/22 01:16 Temperature 98.2 F 98.2 F Temperature Source Oral Oral Pulse Rate 102 H Pulse Rate [Right Brachial] 103 H Respiratory Rate 16 16 Blood Pressure 121/80 Blood Pressure [Right Arm] 125/77 Blood Pressure Mean [Right Arm] 93 Blood Pressure Source [Right Arm] Automatic Cuff Blood Pressure Position [Right Arm] Sitting 02 Sat by Pulse Oximetry 95 Oxygen Delivery Method Room Air Room Air - Lab Data Lab Results 01/21/22 00:02: WBC 11.9 H, RBC 5.01, Hgb 14.7, Hct 45.0, MCV 89.7, MCH 29.2, MCHC 32.6, RDW 13.5, Plt Count 282, MPV 8.1, Neut % (Auto) 76.9, Lymph % (Auto) 18.4, [place] % (Auto) 3.2, Eos % (Auto) 0.4, Baso % (Auto) 1.1, Neut # (Auto) 9.2 H, Lymph # (Auto) 2.2, [place] # (Auto) 0.4, Eos # (Auto) 0.1, Baso # (Auto) 0.1 01/21/22 00:02: Sodium 140, Potassium 3.9, Chloride 103, Carbon Dioxide 29, Anion Gap 11.9, BUN 8, Creatinine 0.60, Estimated Creat Clear 174, Estimated GFR 115, Est GFR ( Amer) 139, Glucose 131 H, Calcium 9.0, Total Bilirubin 0.6, AST 32, ALT 26, Alkaline Phosphatase 78, Troponin I < 0.01, Total Protein 7.3, Albumin 4.2, Globulin 3.1, Albumin/Globulin Ratio 1.4 01/21/22 00:02: Lipase 78 01/21/22 00:45: Urine Color Yellow, Urine Appearance Clear, Urine pH 8.0, Ur Specific [place] 1.020, Urine Protein Trace, Urine Glucose (UA) Negative, Urine Ketones 1+, Urine Blood Negative, Urine Nitrate Negative, Urine Bilirubin Negative, Urine Urobilinogen 0.2, Ur Leukocyte Esterase Negative, Urine WBC 5-10, Ur Squamous Epith Cells 5-10, Amorphous Sediment 2+, Urine Mucus 1+ 01/21/22 00:45: Urine HCG, Qual Negative Result diagrams: 01/21/22 00:02 01/21/22 00:02 Orders (Tests/Meds): ED MEDICATIONS Discontinued Medications Generic Name Dose Route Start Last Admin Trade Name Freq PRN Reason Stop Dose Admin Belladonna Alkaloids 60 ml 01/21/22 00:37 01/21/22 00:43 Gi Cocktail 60ml Udc PO 01/21/22 00:38 60 ml ONCE ONE Administration Famotidine 20 mg 01/21/22 00:37 01/21/22 00:43 Famotidine 20mg/2ml Vial IV 01/21/22 00:38 20 mg ONCE ONE Administration Lactated Ringer's 1,000 mls @ 999 mls/hr 01/21/22 00:45 01/21/22 00:44 Lactated Ringer's 1000 Ml Bag IV 01/21/22 01:45 999 mls/hr .Q1H1M MARY Administration Metoclopramide HCl 10 mg 01/21/22 00:37 01/21/22 00:43 Metoclopramide Hcl 10mg/2ml Vial IVP 01/21/22 00:38 10 mg ONCE ONE Administration Sodium Chloride 8 ml 01/21/22 00:37 Sodium Chloride 0.9% 10ml Vial IV 02/20/22 00:36 NEEDED PRN dilute pepcid ORDERS Category Date Time Status EKG Request [ECG Request by /Jimbo] Stat Y 01/21/22 00:39 Ordered Medical Decision Narrative: DDx includes but not limited to gastritis, GERD, pancreatitis, ACS. HDS, NAD, nonperitonitic abd. exam. Mildly tachycardic but not sustained while here in the ED. Labs ordered with IV famotidine, PO gi cocktail, IV reglan ordered. On reassessment, patient states she cannot get comfortable and wants to leave AMA. Pt advised to stay pending workup results and reassessment but she states she wants someone to take my IV out and I want to leave AMA . Pt was advised on risks of aristeo
== END 2022-01-21 01:21 | disposition left against medical advice (07) ==
LOC: ER 23:54
PROVIDERS: Emergency Provider Student in an Organized Health Care Education/Training Program; PCP Nurse Practitioner Family
DX: R07.9 Chest pain, unspecified (principal); N39.0 Urinary tract infection, site not specified; E89.0 Postprocedural hypothyroidism; K21.9 Gastro-esophageal reflux disease without esophagitis; E04.9 Nontoxic goiter, unspecified; K44.9 Diaphragmatic hernia without obstruction or gangrene; K85.10 Biliary acute pancreatitis without necrosis or infection; N83.209 Unspecified ovarian cyst, unspecified side; F41.9 Anxiety disorder, unspecified; Z79.899 Other long term (current) drug therapy; Z82.49 Family history of ischemic heart disease and other diseases of the circulatory system; Z83.3 Family history of diabetes mellitus
CPT/HCPCS: 80053; 81001; 81025; 83690; 84484; 85025; 96361; 96365; 96374; 96375; 99285

== ENCOUNTER 2023-03-24 08:59 | Emergency (ER) | payer BC, OTHER, SELFPAY ==
[2023-03-24 09:00] VITALS: BP 143/97; PULSE 90; RESP 16; TEMP 36.8; O2SAT 98; BMI 31.6
--- NOTE | 2023-03-24 09:16 | EXP.UTC ---
Discharge Plan Disposition Patient Disposition: Home, Self-Care Condition: Good Prescriptions Prescriptions: New amoxicillin 875 mg tablet 875 mg PO BID 10 Days Qty: 20 0RF ofloxacin 0.3 % drops 5 drp otic (ear) BID 7 Days Qty: 10 1RF Rx Instructions: apply to right ear as directed No Action lisinopril 10 mg tablet 10 mg PO Label Comments: TAKE 1 TABLET 1 TIME EACH DAY levothyroxine 175 mcg tablet 175 mcg PO Label Comments: TAKE 1 TABLET ONCE A DAY IN THE MORNING ON AN EMPTY STOMACH. ofloxacin 0.3 % drops 3 drp OTIC BID Qty: 5 1RF cetirizine 10 mg tablet 10 mg PO DAILY PRN (Reason: ALLERGIES) cefdinir 300 mg capsule 300 mg PO BID Qty: 10 0RF norethindrone-e.estradiol-iron 1 mg-20 mcg (21)/75 mg (7) tablet 1 tab PO DAILY Qty: 28 11RF sertraline 50 MG tablet 75 mg PO DAILY buspirone 15 MG tablet 15 mg PO BID omeprazole 40 MG capsule,delayed release(DR/EC) 40 mg PO DAILY Label Comments: TAKE 1 CAPSULE ONCE A DAY levofloxacin 500 MG tablet 500 mg PO DAILY Qty: 7 0RF Referrals Follow up/Referrals: Provider,Referral, MD [Primary Care Provider] - See instructions Activity Restrictions/Add. Instructions Additional Instructions/Restrictions: Usee drops as directed in the right ear Follow up with your Family Doctor if no improvement or any worsening of symptoms Oral antibiotics as prescribed Return if needed Over the counter Motrin and/or Tylneol may help with pain and discomfort Clinical Impressions Clinical Impression: Otitis media Instructions Patient Instructions: Middle Ear Infection, Ear Infections (Alternative Therapy), Ofloxacin Otic Discharge [place] Corinne [place] [facility] [place] General Stated complaint: ear pain Mode of Arrival: Ambulatory Source of Information: Patient Limitations: No Limitations Time Seen by Provider: 03/24/23 09:17 Description of Symptoms (Recalled from Triage Doc. by RN): Patient reports left ear feels full an dhurts and her right ear feels full. States this has been going on for about a month now. HEENT Symptoms (Recalled from RN notes): Yes Resp Symptoms (Recalled from RN notes): No Skin Symptoms (Recalled from RN notes): No MS Symptoms (Recalled from RN notes): No Functional Status (Recalled from RN notes): wnl History of Present Illness Provider Complaint: Patient states that she has been having bilateral ear pain and fullness for about a month on and off States that it is worse over the last week States that this morning she was hurting worse so she came in Related Data Home Medications Medication Instructions Recorded Confirmed buspirone 15 mg tablet 15 mg PO BID Anxiety 03/03/18 08/06/21 sertraline 50 mg tablet 75 mg PO DAILY Depression 03/03/18 08/06/21 omeprazole 40 mg capsule,delayed 40 mg PO DAILY GERD 06/04/19 08/06/21 release cetirizine 10 mg tablet 10 mg PO DAILY PRN ALLERGIES 06/22/20 08/06/21 levothyroxine 175 mcg tablet 175 mcg PO 08/06/21 08/06/21 lisinopril 10 mg tablet 10 mg PO 08/06/21 08/06/21 Previous Rx's Medication Instructions Recorded levofloxacin 500 mg tablet 500 mg PO DAILY #7 tabs 02/22/21 cefdinir 300 mg capsule 300 mg PO BID #10 caps 06/11/21 norethindrone 1 mg-ethinyl 1 tab PO DAILY Supplement #28 tabs 08/02/21 estradiol 20 mcg (21)-iron 75 mg (7) tablet ofloxacin 0.3 % ear drops 3 drp otic (ear) BID #5 mL 08/06/21 amoxicillin 875 mg tablet 875 mg PO BID 10 days #20 tabs 03/24/23 ofloxacin 0.3 % ear drops 5 drp otic (ear) BID 7 days #10 mL 03/24/23 Allergies Allergy/AdvReac Type Severity Reaction Status Date / Time No Known Allergies Allergy Verified 08/06/21 15:50 Worker's Comp Is this a Worker's Comp case?: No [facility] Disclaimer: The information contained in this section may have been updated after the patient was seen, as this information can be updated by other users. Social History Smoking Status: Ne
[2023-03-24 09:32] VITALS: BP 143/97; PULSE 90; RESP 16; TEMP 36.8; O2SAT 98
== END 2023-03-24 09:33 | disposition home or self-care (01) ==
PROVIDERS: Emergency Provider Nurse Practitioner
DX: H66.93 Otitis media, unspecified, bilateral (principal)
CPT/HCPCS: 99212; 99214; G0463

== ENCOUNTER → 2023-05-30 18:05 | Outpatient (CLI) | payer BC, OTHER, SELFPAY ==
[2023-05-30 18:57] LABS: Basophils # 0.1 K/mm3 (0-0.2); Basophils % 0.4 % (0.1-2.0); Eosinophils # 0.2 K/mm3 (0.0-0.4); Eosinophils % 1.6 % (0.1-12.0); Hematocrit 43.3 % (37.0-47.0); Hemoglobin 14.2 g/dL (12.2-16.2); Lymphocytes # 3.4 K/mm3 (0.7-4.5); Lymphocytes % 27.4 % (10-50); Mean Corpuscular HGB Conc 32.7 g/dL (31.8-35.4); Mean Corpuscular Hemoglobin 28.4 pg (27.0-31.2); Mean Corpuscular Volume 86.7 fl (81-99); Mean Platelet Volume 8.5 fl (7.4-10.4); Monocytes # 0.5 K/mm3 (0.1-1.0); Monocytes % 3.8 % (1.7-9.3); Neutrophils # 8.3 K/mm3 (1.8-7.8); Neutrophils % 66.8 % (37.0-80.0); Platelet Count 272 K/mm3 (142-424); Red Cell Distribution Width 12.9 % (11.5-17.5); White Blood Count 12.4 K/mm3 (4.8-10.8)
[2023-05-30 19:32] LABS: Alanine Aminotransferase 26 U/L (12-78); Albumin Level 3.7 g/dl (3.5-5.0); Albumin/Globulin Ratio 1.2 (1.1-1.8); Alkaline Phosphatase 89 U/L (38-126); Aspartate Amino Transferase 26 U/L (14-36); Bilirubin,Total 0.2 mg/dl (0.2-1.3); Blood Urea Nitrogen 10 mg/dl (7-17); Calcium 8.9 mg/dl (8.4-10.2); Carbon Dioxide 25 mmol/L (22.0-30.0); Chloride 106 mmol/L (98-107); Estimated Glomerular Filt Rate 95 ml/min (>60); GFR (African American) 115 ML/MIN (>60); Globulin 3.2 g/dL (1.3-3.2); Glucose 120 mg/dl (74-100); Sodium 140 mmol/L (136-145); Total Protein,Serum 6.9 g/dl (6.3-8.2)
[2023-05-30 19:48] LABS: Free T4 (Free Thyroxine) 1.88 ng/dl (0.78-2.19)
[2023-05-30 19:50] LABS: T4 (Thyroxine) 21.5 ug/dl (5.53-11.0); Triiodothryronine (T3) Uptake 31 % (23.5-40.5)
[2023-05-30 19:56] LABS: 25-OH Vitamin D, Total 41.8 ng/mL (30-100)
[2023-05-30 20:04] LABS: Thyroid Stimulating Hormone < 0.02 uIU/mL (0.465-4.68)
== END ==
PROVIDERS: PCP Nurse Practitioner Family; Visit Provider Nurse Practitioner Family
DX: E03.9 Hypothyroidism, unspecified (principal); E55.9 Vitamin D deficiency, unspecified; F41.9 Anxiety disorder, unspecified
CPT/HCPCS: 80053; 82306; 84436; 84439; 84443; 84479; 85025

== ENCOUNTER 2024-02-24 09:50 | Outpatient (CLI) | payer BC, SELFPAY ==
[2024-02-24 19:14] LABS: Basophils # 0.1 K/mm3 (0-0.2); Basophils % 0.6 % (0.1-2.0); Eosinophils # 0.2 K/mm3 (0.0-0.4); Eosinophils % 1.6 % (0.1-12.0); Hematocrit 45.2 % (37.0-47.0); Hemoglobin 14.3 g/dL (12.2-16.2); Lymphocytes # 3.6 K/mm3 (0.7-4.5); Lymphocytes % 38.8 % (10-50); Mean Corpuscular HGB Conc 31.7 g/dL (31.8-35.4); Mean Corpuscular Hemoglobin 29.7 pg (27.0-31.2); Mean Corpuscular Volume 93.5 fl (81-99); Mean Platelet Volume 9.3 fl (7.4-10.4); Monocytes # 0.3 K/mm3 (0.1-1.0); Monocytes % 3.5 % (1.7-9.3); Neutrophils # 5.1 K/mm3 (1.8-7.8); Neutrophils % 55.5 % (37.0-80.0); Platelet Count 248 K/mm3 (142-424); Red Blood Count 4.84 M/mm3 (4.20-5.40); Red Cell Distribution Width 13.9 % (11.5-17.5); White Blood Count 9.2 K/mm3 (4.8-10.8)
[2024-02-24 19:29] LABS: Chloride 108 mmol/L (98-107); Potassium 4.2 mmoL/L (3.5-5.1); Sodium 139 mmol/L (136-145)
[2024-02-24 19:32] LABS: Alanine Aminotransferase 44 U/L (12-78); Albumin Level 3.7 g/dl (3.5-5.0); Albumin/Globulin Ratio 1.2 (1.1-1.8); Alkaline Phosphatase 86 U/L (38-126); Anion Gap 11.2 mEq/L (5-15); Aspartate Amino Transferase 42 U/L (14-36); Bilirubin,Total 0.4 mg/dl (0.2-1.3); Blood Urea Nitrogen 8 mg/dl (7-17); Calcium 8.7 mg/dl (8.4-10.2); Carbon Dioxide 24 mmol/L (22.0-30.0); Cholesterol 194 mg/dl (140-200); Estimated Glomerular Filt Rate 113 ml/min (>60); GFR (African American) 137 ML/MIN (>60); Glucose 117 mg/dl (74-100); Iron 76 ug/dL (37-170); Total Protein,Serum 6.7 g/dl (6.3-8.2); Triglycerides 169 mg/dl (30-150); VLDL Cholesterol 34 mg/dL (0-40)
[2024-02-24 19:33] LABS: Chol/HDL Ratio 3.2 (1-3.5); HDL Cholesterol 61 mg/dl (40-60)
[2024-02-24 19:43] LABS: Direct LDL Cholesterol 112.02 mg/dL (100-129); Total Iron Binding Capacity 370 ug/dL (265-497)
[2024-02-24 19:57] LABS: 25-OH Vitamin D, Total 20.2 ng/mL (30-100)
[2024-02-24 19:58] LABS: Free Thyroxine Index 4.8 ug/dL (5.93-13.13); T4 (Thyroxine) 16.7 ug/dl (5.53-11.0); Triiodothryronine (T3) Uptake 29 % (23.5-40.5)
[2024-02-24 20:12] LABS: Thyroid Stimulating Hormone 0.08 uIU/mL (0.465-4.68)
[2024-02-24 21:24] LABS: Vitamin B12 291 pg/mL (239-931)
[2024-02-25 10:20] LABS: Hemoglobin A1C 5.7 % (4.0-6.0)
== END 2024-02-24 23:59 | disposition home or self-care (01) ==
LOC: LAB.DROPOF 02-25 10:09
PROVIDERS: PCP Nurse Practitioner Family; Visit Provider Nurse Practitioner Family
DX: E07.9 Disorder of thyroid, unspecified (principal); E55.9 Vitamin D deficiency, unspecified; R53.83 Other fatigue; R73.09 Other abnormal glucose
CPT/HCPCS: 80053; 80061; 82306; 82607; 82746; 83036; 83540; 83550; 84436; 84443; 84479; 85025

== ENCOUNTER 2024-06-01 16:34 | Outpatient (CLI) | payer BC, SELFPAY ==
[2024-06-01 19:51] LABS: Free Thyroxine Index 3.5 ug/dL (5.93-13.13); T4 (Thyroxine) 13.3 ug/dl (5.53-11.0); Triiodothryronine (T3) Uptake 26 % (23.5-40.5)
[2024-06-01 20:04] LABS: Thyroid Stimulating Hormone 3.32 uIU/mL (0.465-4.68)
[2024-06-03 12:26] LABS: 25-OH Vitamin D, Total 23.2 ng/mL (30-100)
== END 2024-06-01 23:59 | disposition home or self-care (01) ==
LOC: LAB.DROPOF 06-02 16:35
PROVIDERS: PCP Nurse Practitioner Family; Visit Provider Nurse Practitioner Family
DX: E07.9 Disorder of thyroid, unspecified (principal); E55.9 Vitamin D deficiency, unspecified
CPT/HCPCS: 82306; 84436; 84443; 84479

== ENCOUNTER 2025-03-14 08:30 | Outpatient (CLI) | payer BC, SELFPAY ==
[2025-03-14 16:41] LABS: Basophils # 0.1 K/mm3 (0-0.2); Basophils % 0.6 % (0.1-2.0); Eosinophils # 0.2 Kmm3 (0.0-0.4); Eosinophils % 2.1 % (0.1-12.0); Hematocrit 43.4 % (37.0-47.0); Hemoglobin 14.4 g/dL (12.2-16.2); Immature Granulocytes # 0.01 10^3uL; Immature Granulocytes % 0.1 %; Lymphocytes # 3.9 K/mm3 (0.7-4.5); Lymphocytes % 46.4 % (10-50); Mean Corpuscular HGB Conc 33.2 g/dL (31.8-35.4); Mean Corpuscular Hemoglobin 29.3 pg (27.0-31.2); Mean Corpuscular Volume 88.4 fl (81-99); Monocytes # 0.5 K/mm3 (0.1-1.0); Monocytes % 5.4 % (1.7-9.3); Neutrophils # 3.8 K/mm3 (1.8-7.8); Neutrophils % 45.4 % (37.0-80.0); Nucleated Red Blood Cells # 0 10^3/uL; Nucleated Red Blood Cells % 0 %; Platelet Count 263 K/mm3 (142-424); Red Blood Count 4.91 M/mm3 (4.20-5.40); Red Cell Distribution Width 12.7 % (11.5-17.5); Red Cell Distribution Width-SD 41.2 fL; White Blood Count 8.5 K/mm3 (4.8-10.8)
[2025-03-14 17:05] LABS: Alanine Aminotransferase 20 U/L (12-78); Albumin Level 3.8 g/dl (3.5-5.0); Albumin/Globulin Ratio 1.4 (1.1-1.8); Alkaline Phosphatase 81 U/L (38-126); Aspartate Amino Transferase 23 U/L (14-36); Bilirubin,Total 0.4 mg/dl (0.2-1.3); Blood Urea Nitrogen 10 mg/dl (7-17); Calcium 8.2 mg/dl (8.4-10.2); Carbon Dioxide 26 mmol/L (22.0-30.0); Chloride 105 mmol/L (98-107); Chol/HDL Ratio 3.8 (1-3.5); Cholesterol 194 mg/dl (140-200); Estimated Glomerular Filt Rate 94 ml/min (>60); GFR (African American) 114 ML/MIN (>60); Globulin 2.8 g/dL (1.3-3.2); Glucose 84 mg/dl (74-100); HDL Cholesterol 51 mg/dl (40-60); Sodium 139 mmol/L (136-145); Total Protein,Serum 6.6 g/dl (6.3-8.2); Triglycerides 209 mg/dl (30-150); VLDL Cholesterol 42 mg/dL (0-40)
[2025-03-14 17:16] LABS: Direct LDL Cholesterol 103.61 mg/dL (100-129)
[2025-03-14 17:22] LABS: 25-OH Vitamin D, Total 20.4 ng/mL (30-100)
[2025-03-14 17:35] LABS: Thyroid Stimulating Hormone 4.03 uIU/mL (0.465-4.68)
[2025-03-14 17:45] LABS: HIV Combo NEGATIVE (Negative)
[2025-03-14 17:53] LABS: Hepatitis C Ab Qual. W/ RFX NEGATIVE (Negative)
[2025-03-14 18:51] LABS: Hemoglobin A1C 5.7 % (4.0-6.0)
[2025-03-15 07:11] LABS: Hepatitis B Surface Antigen Negative (Negative)
== END 2025-03-14 23:59 | disposition home or self-care (01) ==
LOC: LAB.DROPOF 03-15 11:48
PROVIDERS: PCP Nurse Practitioner Family; Visit Provider Nurse Practitioner Family
DX: E07.9 Disorder of thyroid, unspecified (principal); E55.9 Vitamin D deficiency, unspecified; R73.03 Prediabetes
CPT/HCPCS: 80053; 80061; 82306; 83036; 84443; 85025; 86803; 87340; 87389

== ENCOUNTER 2025-05-09 15:00 | Outpatient (CLI) | payer BC, SELFPAY ==
--- OUTSIDE RECORDS SUMMARY | 2025-05-10 12:33 | XMS_ITS | Clinical Summary ---
Author Organization [facility] Address [address] [place] [address] Care Team Providers Care Curator Name Role Phone Ena Cote APRN Primary Care Provider [phone] Allergies No known active allergies Medications methocarbamol (ROBAXIN) 750 MG tabletIndications:L eft hip pain Take 1 tablet by mouth 4 (Four) Times a Day As Needed for Muscle Spasms. 20 tablet 1 2 Active phentermine (Adipex-P) 37.5 MG tabletIndications:C lass 1 obesity due to excess calories without serious comorbidity with body mass index (BMI) of 34.0 to 34.9 in adult Take 1 tablet by mouth Every Morning Before Breakfast. 30 tablet 3 Active Desvenlafaxine Succinate ER 25 MG tablet sustained-release 24 hourIndications:Anx iety and depression TAKE 1 TABLET BY MOUTH ONCE DAILY FOR 7 DAYS THEN 2 TABLETS DAILY 30 tablet 3 Active vitamin D (ERGOCALCIFEROL) 1.25 MG (85766 UT) capsule capsuleIndications: Vitamin D deficiency Take 1 capsule by mouth 1 (One) Time Per Week. 5 capsule 1 3 Active levothyroxine (SYNTHROID, LEVOTHROID) 50 MCG tabletIndications:A cquired hypothyroidism Take 1 tablet by mouth Every Morning. 90 tablet 2 3 Active montelukast (SINGULAIR) 10 MG tabletIndications:A llergic rhinitis, unspecified seasonality, unspecified trigger Take 1 tablet by mouth Every Night. 90 tablet 2 3 Active MICROGESTIN 1-20 MG-MCG per tabletIndications:R outine general medical examination at a health care facility Take 1 tablet by mouth once daily 21 tablet 3 Active desvenlafaxine (PRISTIQ) 50 MG 24 hr tabletIndications:A nxiety and depression Take 1 tablet by mouth once daily 30 tablet 3 Active levothyroxine (SYNTHROID, LEVOTHROID) 200 MCG tabletIndications:A cquired hypothyroidism TAKE 1 TABLET BY MOUTH ONCE DAILY IN THE MORNING 90 tablet 4 Active busPIRone (BUSPAR) 15 MG tabletIndications:A nxiety and depression Take 1 tablet by mouth twice daily 180 tablet 4 Active omeprazole (priLOSEC) 40 MG capsuleIndications: Gastroesophageal reflux disease, unspecified whether esophagitis present Take 1 capsule by mouth once daily 90 capsule 4 Active cetirizine (EQ Allergy Relief, Cetirizine,) 10 MG tabletIndications:A llergic rhinitis, unspecified seasonality, unspecified trigger Take 1 tablet by mouth Daily. PT NEEDS FOLLOW UP APPT FOR FURTHER REFILLS. 30 tablet 4 Active Active Problems Problem Noted Date Diagnosed Date Hiatal hernia without gangrene or obstruction Overview (07/08/2022): Last Assessment & Plan: Sliding HH- will need EGD with Garcia study, upper GI, and manometry prior to possible repair. Will need to be off Omeprazol for 4 weeks prior to pH. RTC when these are done. Incisional hernia without obstruction or gangren e 10/30/2021 Overview (07/08/2022): Last Assessment & Plan: Plan repair pending work-up of HH Immunizations Immunization Administration Dates Next Due COVID-19 (MODERNA) Monovalen t Original Booster 09/05/2021 DTaP, Unspecified 02/14/1992, 1,1988,1987,1988 Flu Vaccine Quad PF >36MO 08/09/2021,12/09/2019 Fluzone (or Fluarix & Flulav al for VFC) >6mos 07/30/2022 Hepatitis A 09/18/2018,02/19/2018 Influenza TIV (IM) 08/25/2007 MMR 03/22/1999,06/10/1989 Polio, Unspecified 02/14/1992, 1,1988,1987 Tdap 02/23/2019 Family History Medical History Relation Name Comments Anxiety disorder Daughter Christiano Diabetes Father Josue Hyperlipidemia Father Josue Anxiety disorder Mother Jennie Anxiety disorder Sister Hortensai Relation Name Status Comments Daughter Christiano Father Josue Mother Jennie Sister Hortensia Social History Tobacco Use Types Packs/Day Years Used Date Smoking Tobacco: Never Tobacco Cessation:Counseling Given: Not Answered Alcohol Use Standard Drinks/Week Comments Never 0 (1 standard drink = 0.6 oz pur e alcohol) PHQ-2 Answer Date Recorded Retired PHQ-9: Brief Depression Severity Measure Score 0 07/05/2022 Abuse Screen Answer Date Recorded Unsafe at Home or Work/School Not on file Feels Threatened by Someone? Not on file 06/2023 Does Anyone Keep You from Co ntacting Others or Doint Things Outside the Home? Not on file 07/21/2023 Physical Sign of Abuse Present Not on file 1 Housing Stability Answer Date Recorded Current Living Arrangements Not on file 06/2023 Potentially Unsafe Housing Conditions Not on eden e 07/21/2023 Family and Community Support Answer Tee e Recorded Help with Day-to-Day Activities Not on file 07/21/2023 Lonely or Isolated Not on file 07/21/2023 Employment Answer Date Recorded Do you want help finding or keeping work or a inocente b? Not on file 07/21/2023 Disabilities Answer Date Recorded Concentrating, Remembering, or Making Decisions Difficulty Not on file 07/21/2023 Doing Errands Independently Difficulty Not on fi le 07/21/2023 Education Answer Date Recorded Help with school or training? Not on file Preferred Language Not on file 07/21/2023 Comments No Sex and Gender Information Value Date Recorded Sex Assigned at Not on file Legal Sex Female 11:21 AM EDT Gender Identity Not on file Sexual Orientation Not on file Last Filed Vital Signs Vital Sign Reading Time Taken Comments Blood Pressure 136/84 12/19/2022 3:07 PM EST Pulse 103 12/19/2022 3:07 PM EST Temperature 36.6 C (97.8 F) 12/19/2022 3:07 PM EST Respiratory Rate 16 12/19/2022 3:07 PM EST Oxygen Saturation 98% 12/19/2022 3:07 PM EST Inhaled Oxygen Concentration - - Weight 90.4 kg (199 lb 6.4 oz) 12/19/2022 3:07 P M EST Height 162.6 cm (5' 4 ) 12/19/2022 3:07 PM EST Body Mass Index 34.23 12/19/2022 3:07 PM EST Plan of Treatment Health Maintenance Due Date Last Done Comments Annual Gynecologic Pelvic and Breast Exam 1990 ANNUAL PHYSICAL 07/05/2023 07/05/2022 COVID-19 Vaccine ( season) 2024 09/05/2021, 11/15/2020, 10/25/2020 INFLUENZA VACCINE 07/13/2025 07/30/2022, , 12/09/2019, Additional history exists TDAP/TD VACCINES (2 - Td or Tdap) 02/23/2029 02/23/2019 HEPATITIS C SCREENING Completed 07/05/2022 Pneumococcal Vaccine 0-49 Aged Out No longer eligible based on patient's age to complete this topic Procedures Procedure Name Priority Date/Time Associated Diagnosis Comments HEPATITIS C ANTIBODY Routine 07/05/2022 3:20 PM EDT Routine general medical examination at a health care facility from Last 3 Months or Most Recently Relevant to Health Maintenance Results * Hepatitis C antibody (07/05/2022 3:20 PM EDT) Hep C Virus Ab <0.1 0.0 - 0.9 s/co ratio [facility] Comment: Negative: < 0.8 Indeterminate: 0.8 - 0.9 Positive: > 0.9 HCV antibody alone does not differentiate between previous resolved infection and active infection. The CDC and current clinical guidelines recommend that a positive HCV antibody result be followed up with an HCV RNA test to support the diagnosis of acute HCV infection. [facility] Hepatitis C Virus (HCV) RNA, Diagnosis, HILDA (415014) and Hepatitis C Virus (HCV) Antibody with reflex to Quantitative Real-time PCR ([id number]). Blood 07/05/2022 3:20 PM EDT 07/05/2022 Narrative [facility] (AMBULATORY) - 07/06/2022 6:36 AM EDT [facility]formed at: [facility] [address] [place] [address] [id number] Clamp Jig Assembler: Yusef Walton PhD, Phone: [phone] Patient Fasting: Y us Ena Cote APRN LAB BLOOD ORDERABLES Final Result [facility] ([facility]) [address] [place] [address], [place] [phone] [facility] [address] [place] [id number], from Last 3 Months or Most Recently Relevant to Health Maintenance Insurance Care Teams Curator Relationship Specialty Start Date End Date Ena Cote APRN [address] [place] [id number] PCP - General Nurse Practitioner 07/05/22
--- OUTSIDE RECORDS SUMMARY | 2025-05-10 12:33 | XMS_ITS | Clinical Summary ---
Author Organization [facility] Address [address] [place] [address] Care Team Providers Care Escort Patients Name Role Phone Lenka Barnett BRIANA Primary Care Provider [phone]- [phone] Allergies No known active allergies Medications sertraline (Zoloft) 50 MG tablet 75 mg. 10/01/2021 Active omeprazole (PriLOSEC) [address] capsule TAKE 1 CAPSULE 1 TIME EACH DAY 10/01/2021 Active cetirizine (ZyrTEC) 10 MG tablet TAKE 1 TABLET 1 TIME EACH DAY 10/01/2021 Active busPIRone (Buspar) 15 MG tablet TAKE 1 TABLET 2 TIMES EACH DAY 10/01/2021 Active levothyroxine (Synthroid, Levoxyl) 175 MCG tablet TAKE 1 TABLET ONCE A DAY IN THE MORNING ON AN EMPTY STOMACH. 07/27/2021 Active lisinopril 10 MG tablet TAKE 1 TABLET 1 TIME EACH DAY 10/01/2021 Active montelukast (Singulair) 10 MG tablet TAKE 1 TABLET 1 TIME EACH DAY 10/01/2021 Active Junel FE 11/01 1-20 MG-MCG tablet TAKE 1 TABLET 1 TIME EACH DAY 10/22/2021 Active Active Problems Problem Noted Date Diagnosed Date Hiatal hernia without gangrene or obstruction Assessment & Plan (10/30/2021 8:45 AM EST): Sliding HH- will need EGD with Garcia study, upper GI, and manometry prior to possible repair. Will need to be off Omeprazol for 4 weeks prior to pH. RTC when these are done. Incisional hernia without obstruction or gangren e 10/30/2021 Assessment & Plan (10/30/2021 8:45 AM EST): Plan repair pending work-up of HH Family History Medical History Relation Name Comments Diabetes Father Hyperlipidemia Father Hypertension Father Relation Name Status Comments Father Social History Tobacco Use Types Packs/Day Years Used Date Smoking Tobacco: Never Smokeless Tobacco: Never Alcohol Use Standard Drinks/Week Comments Never 0 (1 standard drink = 0.6 oz pur e alcohol) PHQ-2 Answer Date Recorded Patient Health Questionnaire-2 Score 0 10/30/2021 Comments Unknown Sex and Gender Information Value Date Recorded Sex Assigned at Not on file Legal Sex Female 6:36 PM EDT Gender Identity Not on file Sexual Orientation Not on file Last Filed Vital Signs Vital Sign Reading Time Taken Comments Blood Pressure 125/81 10/30/2021 8:15 AM EST Pulse 102 10/30/2021 8:15 AM EST Temperature 36.5 C (97.7 F) 10/30/2021 8:15 AM EST Respiratory Rate - - Oxygen Saturation - - Inhaled Oxygen Concentration - - Weight 95 kg (209 lb 7 oz) 10/30/2021 8:15 AM ES T Height 164.5 cm (5' 4.75 ) 10/30/2021 8:15 AM ES T Body Mass Index 35.12 10/30/2021 8:15 AM EST Plan of Treatment Health Maintenance Due Date Last Done Comments [facility]-Depression Screening 1990 [facility]-/Child/Adol SDOH Screenings 1990 [facility]-Varicella Vaccines (1 of 2 - 13+ 2-dose series) 02/05/2001 HPV Vaccines (1 - 3-dose series) 02/05/2003 [facility]- SDOH Screenings 02/05/2006 [facility]-Adult SDOH Screenings 02/05/2006 [facility]-Hepatitis B Vaccines (1 of 3 - 19+ 3-dose series) 02/05/2007 [facility]-Pap Smear 02/05/2009 [facility]-Cervical Cancer Screening 02/05/2018 [facility]-HPV/Cotest 02/05/2018 [id number] Vaccine ( season) 2024 09/05/2021, 11/15/2020, 10/25/2020 [facility]-Influenza Vaccine (#1) 06/13/202508/09, 12/09/2019, 08/25/2007 [facility]-DTaP,Tdap,and Td Vaccines (7 - Td or Tdap) 02/23/2029 02/23/2019, 02/14/1992, 02/17/1991, Additional history exists [facility]-Zoster Vaccines (1 of 2) 02/05/2038 [facility]-IPV Vaccines Aged Out 02/14/1992, 05/1991, 1988, Additional history exists No longer eligible based on patient's age to complete this topic [facility]-Hepatitis A Vaccines Aged Out 09/18/2018, 02/10 No longer eligible based on patient's age to complete this topic [facility]-HIB Vaccines Aged Out No longer e ligible based on patient's age to complete this topic [facility]-Pneumococcal Vaccine: Pediatrics (0 to 5 Years) and At-Risk Patients (6 to 49 Years) Aged Out No longer eligible based on patient's age to complete this topic [facility]-Rotavirus Vaccines Aged Out No lo nger eligible based on patient's age to complete this topic Insurance [employer] Care Teams Escort Patients Relationship Specialty Start Date End Date Lenka Barnett APRN [address] [id number] PCP - General 12/06/21
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
--- OUTSIDE RECORDS SUMMARY | 2025-05-10 12:33 | XMS_ITS | Clinical Summary ---
Author Organization [employer] ([place], [place], [place], [place]) Address [address] [place] [address] Care Team Providers Care E Learning Designer Name Role Phone Odalis Covington APRN Primary Care Provider [phone]- [phone] Allergies No known active allergies Medications ergocalciferol [...] Date Mark rded Speak language other than Austrian at home Not on file 04/21/2024 Want [...] 05/10/2024 3:23 PM EDT Plan of Treatment Health Maintenance Due Date Last Done Comments HIV Screening 02/05/2003 Hepatitis C Screening 02/05/2006 Lipid Panel 2008 Pap Smear 02/05/2009 COVID-19 VACCINE ( season) 2024 09/05/2021, 11/15/2020, 10/25/2020 Tobacco Cessation Counseling and Screening (12+) 05/10/2025 05/10/2024 Influenza Vaccine (#1) 2025 DTAP/TDAP/TD VACCINES (7 - Td or Tdap) 02/23/2029 02/23/2019, 02/14/1992, 02/17/1991, Additional history exists Pneumococcal Vaccine: 0-49 Years Aged Out No longer eligible based on patient's age to complete this topic Care Teams E Learning Designer Relationship Specialty Start Date End Date Odalis Covington, OFFICE MACHINES TEACHER [address] [place] [address] PCP - General Family Medicine 09/10/23
== END 2025-05-09 23:59 | disposition home or self-care (01) ==
LOC: LAB.DROPOF 05-10 12:31
PROVIDERS: PCP Nurse Practitioner Family; Visit Provider Nurse Practitioner Family
DX: R39.9 Unspecified symptoms and signs involving the genitourinary system (principal)
CPT/HCPCS: 87086; 87088; 87186

== ENCOUNTER 2025-07-04 14:25 | Outpatient (CLI) | payer BC, SELFPAY ==
[2025-07-04 19:32] LABS: Coronavirus 19, PCR Not Detected (NotDetected); Influenza A, PCR Not Detected (NotDetected); Influenza B, PCR Not Detected (NotDetected)
--- OUTSIDE RECORDS SUMMARY | 2025-07-05 13:35 | XMS_ITS | Clinical Summary ---
Author Organization [facility] Address [address] [place] [address] Care Team Providers Care Brick Paver Name Role Phone Lenka Barnett BRIANA Primary Care Provider +1- [phone] Allergies No known active allergies Medications sertraline [...] of 2 - 13+ 2-dose series) 02/05/2001 [facility]- SDOH Screenings 02/05/2006 [facility]-Adult SDOH Screenings 02/05/2006 [facility]-Hepatitis B Vaccines (1 of 3 - 19+ 3-dose series) 02/05/2007 [facility]-Pap Smear 02/05/2009 HPV Vaccines (1 - 3-dose SCDM series) 02/05/2015 [facility]-Cervical Cancer Screening 02/05/2018 [facility]-HPV/Cotest 02/05/2018 [id number] Vaccine ( season) 2025 09/05/2021, 11/15/2020, 10/25/2020 [facility]-Influenza Vaccine (#1) 06/13/202508/09, [...] Insurance [employer] Care Teams Brick Paver Relationship Specialty Start Date End Date Lenka Barnett APRN [address] [place] [address] PCP - General 12/06/21
--- OUTSIDE RECORDS SUMMARY | 2025-07-05 13:35 | XMS_ITS | Clinical Summary ---
Author Organization [facility] Address [address] [place] [address] Care Team Providers Care Park Services Specialist Name Role Phone Ena Cote APRN Primary Care Provider [phone]- [phone] Allergies No known active allergies Medications methocarbamol [...] 3 Active vitamin D (ERGOCALCIFEROL) 1.25 MG (56655 UT) capsule capsuleIndications: Vitamin D deficiency Take [...] Anxiety disorder Mother Jennie Anxiety disorder Sister Hortensia Relation Name Status Comments Daughter Christiano Father [...] Breast Exam 1990 ANNUAL PHYSICAL 07/05/2023 07/05/2022 INFLUENZA VACCINE 05/13/2025 07/30/2022, , 12/09/2019, Additional history exists TDAP/TD [...] Ab <0.1 0.0 - 0.9 s/co ratio [facility] Comment: Negative: < 0.8 Indeterminate: 0.8 - 0.9 Positive: > 0.9 HCV antibody alone does not differentiate between previous resolved infection and active infection. The CDC and current clinical guidelines recommend that a positive HCV antibody result be followed up with an HCV RNA test to support the diagnosis of acute HCV infection. [facility] offers Hepatitis C Virus (HCV) RNA, Diagnosis, HILDA (373662) and Hepatitis C Virus (HCV) Antibody with reflex to Quantitative Real-time PCR ([id number]). Blood 07/05/2022 3:20 PM EDT 07/05/2022 Narrative [facility] ([facility]) - 07/06/2022 6:36 AM EDT Performed at: 01 - [facility] [address] [place], [place] [id number] Portuguese Tutor: Yusef Walton PhD, Phone: [phone] Patient Fasting: Y us Ena Cote APRN LAB BLOOD ORDERABLES Final Result [facility] ([facility]) [address] [place] [address], [place] [phone] [facility] [address] [place] [address], from Last 3 Months or Most Recently Relevant to Health Maintenance Insurance Care Teams Park Services Specialist Relationship Specialty Start Date End Date Ena Cote APRN [address] [place] [id number] PCP - General Nurse Practitioner 07/05/22
== END 2025-07-04 23:59 | disposition home or self-care (01) ==
LOC: LAB.DROPOF 07-05 13:34
PROVIDERS: PCP Nurse Practitioner Family; Visit Provider Nurse Practitioner Family
DX: J04.0 Acute laryngitis (principal); R49.1 Aphonia
CPT/HCPCS: 87070; 87636